=== PATIENT | female | born 1955 | race Hispanic/Latino ===

== ENCOUNTER → 2023-11-14 | Day surgery (SDC) | payer OTHER ==
[2023-11-12 15:44] LABS: Absolute Basophils 0.1 K/uL (0-0.5); Absolute Eosinophils 0.1 K/uL (0-0.5); Absolute Lymphocytes (CBC) 2.3 K/uL (0.7-4.9); Absolute Monocytes 0.5 K/uL (0.1-1.3); Absolute Neutrophil 3.8 K/uL (1.8-8.0); Basophils % 1.1 % (0-1.3); Eosinophils % 1.1 % (0-4.4); Hematocrit 36.5 % (36.0-45.0); Hemoglobin 11.5 g/dL (12.0-15.0); Lymphocytes % 33.8 % (15.3-44.8); MCH 23.4 pg (27.0-35.0); MCHC 31.4 g/dL (32.0-36.0); MCV 74.4 fL (80-100); Monocytes % 7.7 % (3.3-12.3); Neutrophils % 56.3 % (41.7-73.7); Platelets 427 thou/uL (152-406); RBC Red Blood Cell Count 4.91 M/uL (3.86-4.86); Red Cell Distribution Width 17.3 % (12.1-15.2)
[2023-11-12 15:59] LABS: Anion Gap 6.8 mEq/L (5.0-15.0); Potassium 3.8 mEq/L (3.5-5.1)
[~2023-11-14] MED LIST: LIDOCAINE 1% MPF 5 ML VIAL ONE; SUCCINYLCHOLINE 20 MG/ML (10 ML) IV ONE; propofoL 200 MG/20 ML VIAL IV ONE
[2023-11-14] MEDS: NA CHLORIDE 0.9% 1,000 ML ONE (07:45)
[2023-11-14 09:45] VITALS: TEMP 97.3
[2023-11-14 10:03] VITALS: BP 143/63; O2SAT 99
--- NOTE | 2023-11-14 16:57 | EKG ---
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
== END ==
LOC: OR 07:11
PROVIDERS: ATTEND Surgery
PROC: 0DBH8ZX Excision of Cecum, Via Natural or Artificial Opening Endoscopic, Diagnostic (ICD-10-PCS; principal; 2023-11-14 08:45)
DX: Z12.11 Encounter for screening for malignant neoplasm of colon (principal); K57.30 Diverticulosis of large intestine without perforation or abscess without bleeding; K64.8 Other hemorrhoids; K63.5 Polyp of colon
CPT/HCPCS: 93005; 85025; 80048; 36415; 82947; 88305; 45380; J2704 ×2; J2001; J7030